=== PATIENT | female | born 1990 | race Caucasian/White ===

== ENCOUNTER 2019-12-17 06:33 | Inpatient (IN) | payer MEDICAID ==
[~2019-12-17] VITALS: Ht 162.7 cm; Wt 94.5 kg
[~2019-12-17 06:33] MED LIST: IRON325 M1; PRENATAL1 TA1 PO
[2020-01-01] VITALS (17 sets, daily range): BP systolic 59–128; BP diastolic 48–89; PULSE 68–93; TEMP 97.9–98.4
[2020-01-01] MEDS ORDERED: ZOVIRAX400 MG (10:03)
[2020-01-01] MEDS ORDERED: LEXAPRO 10MG10 MG PO (10:03)
--- NOTE | 2020-01-01 10:35 | NUR ---
Pt and spouse arrive to unit ambulatory at 1015. Pt states water broke at about 0830, is repeat . Clear fluid noted leaking when pt ambulating. Pt denies vaginal bleeding, reports good movement. Dr. Olivier notifed. Pt to have repeat this afternoon.
[2020-01-01 10:50] LABS: BASO % 0.2 % (0.0-2.0); EOS # 0.1 (0.0-0.7); EOS % 0.4 % (0-4.0); GRAN # 10.9 (1.4-6.5); GRAN % 82.3 % (42.2-75.2); HEMATOCRIT 38.4 % (37.0-47.0); HEMOGLOBIN 12.6 g/dl (12.5-16.0); LYMPH # 1.6 (1.2-3.4); MEAN CELL VOLUME 90 fl (80.0-100.0); MEAN CORPUSCULAR HEMOGLOBIN 29 pg (27.0-31.0); MEAN CORPUSCULAR HGB CONC 33 g/dl (33.0-37.0); MONO # 0.6 (0.1-0.6); MONO % 4.5 % (1.7-9.3); PLATELET COUNT 245 K/mm3 (130-400); RED BLOOD COUNT 4.29 M/mm3 (4.10-5.30); REDCELL DISTRIBUTION WIDTH-CV 13.9 % (11.5-14.5)
[2020-01-02] VITALS: BP 123/64; PULSE 79; TEMP 97.9
[2020-01-02 04:00] VITALS: BP 129/71; PULSE 83; TEMP 98.1
[2020-01-02 08:00] VITALS: BP 121/69; PULSE 73; TEMP 98.7
[2020-01-02 12:24] VITALS: BP 107/65; PULSE 79; TEMP 98
--- NOTE | 2020-01-02 12:47 | NUR ---
Initial visit attempt; Nurse with patient, Playback Operator left card of congratulations for the of their son and information regarding the availability of spiritual care at [facility].
[2020-01-02] MEDS ORDERED: PERCOCET 325 MG1 TA2 PO (13:13)
[2020-01-02] MEDS ORDERED: IBU800 M1 PO (13:13)
[2020-01-02 16:07] VITALS: BP 108/73; PULSE 83; TEMP 97.8
[2020-01-02 20:09] VITALS: BP 114/62; PULSE 84; TEMP 99.3
[2020-01-03 08:00] VITALS: BP 132/72; PULSE 78; TEMP 98
[2020-01-03 16:25] VITALS: BP 127/67; PULSE 87; TEMP 97.8
[2020-01-03 20:00] VITALS: BP 121/70; PULSE 68; TEMP 97.8
[2020-01-04 07:55] VITALS: BP 126/69; PULSE 93; TEMP 98.3
--- NOTE | 2020-01-04 10:50 | NUR ---
Patient given discharge instructions, denies questions. Infant/mother bands verified, patient discharged to [facility] status.
== END 2020-01-04 10:50 | disposition home or self-care (01) | DRG 787 ==
LOC: LDR 01-01 09:49 → OB 01-01 10:15 → LDR 01-03 06:33 → OB 01-04 10:50
PROVIDERS: ADMIT Student in an Organized Health Care Education/Training Program
PROC: 10D00Z1 Extraction of Products of Conception, Low, Open Approach (ICD-10-PCS; principal; 2020-01-01)
DX: O42.92 Full-term premature rupture of membranes, unspecified as to length of time between rupture and onset of labor (principal); O23.593 Infection of other part of genital tract in pregnancy, third trimester; O98.513 Other viral diseases complicating pregnancy, third trimester; B00.89 Other herpesviral infection; O34.211 Maternal care for low transverse scar from previous cesarean delivery; O99.62 Diseases of the digestive system complicating childbirth; K21.9 Gastro-esophageal reflux disease without esophagitis; O99.344 Other mental disorders complicating childbirth; F41.9 Anxiety disorder, unspecified; O99.213 Obesity complicating pregnancy, third trimester; O99.214 Obesity complicating childbirth; Z3A.38 38 weeks gestation of pregnancy; Z37.0 Single live birth; B96.89 Other specified bacterial agents as the cause of diseases classified elsewhere; Z88.0 Allergy status to penicillin
CPT/HCPCS: J0171; J0690; J1100; J1885; J2270; J2370; J2405; J2590; J3010; J7120